=== PATIENT | male | born 1970 | race Caucasian/White ===

== ENCOUNTER → 2020-03-10 11:24 | Outpatient (CLI) | payer BC, SELFPAY ==
[2020-03-10 13:09] LABS: Coronavirus 19 IgG Antibody Negative (Negative); Coronavirus 19 IgM Antibody Negative (Negative)
== END ==
PROVIDERS: Visit Provider Internal Medicine Gastroenterology
DX: Z01.812 Encounter for preprocedural laboratory examination (principal)
CPT/HCPCS: 36415; 86328

== ENCOUNTER 2020-03-12 09:01 | Day surgery (SDC) | payer BC, SELFPAY ==
[2020-03-08 11:34] VITALS: BMI 41.1
[2020-03-12 09:40] VITALS: BP 119/69; PULSE 71; RESP 18; TEMP 36.8; O2SAT 98
[2020-03-12 10:07] VITALS: O2SAT 96
--- NOTE | 2020-03-12 10:10 | HMH.PROC ---
[facility] Procedure Note Procedure Note:: Upper Endoscopy Procedure Report: Esophagogastroduodenoscopy with cold biopsies Endoscopost: Reagan Craig II, MD Referring Physician: Yovani Hawk MD/José Luis Delaney MD Date of Procedure: March 12, 2020 Equipment: Olympus GIF 180 standard upper endoscope Sedation: MAC sedation Indications: Mr. Becerra is a 50-year-old gentleman who had prior laparoscopic cholecystectomy in June 2010 for a nonfunctioning gallbladder. He did formerly have some chronic constipation prior to the gallbladder surgery/cholecystectomy. He did start having more loose bowel movement subsequently. He had a colonoscopy with ne in December 2011 that was normal. He has factor V Leiden deficiency. Over the last 4 months he has had a change in bowel function with postprandial bowel urgency. He does not eat while he works. He has soft, loose or even watery stools. He also reports some perianal itching/pruritus ani. The patient does have right upper quadrant abdominal pain, bloating and belching. He does get some chest pain and pressure that radiates into the back. He reports some heartburn and reflux with occasional globus sensation. The patient does state that his recent lab work from hematology showed some abnormal liver chemistries and elevated creatinine. The patient has not yet completed the sucrose breath test to my knowledge. Procedure: Prior to the procedure, a history and physical exam was performed, and patient's medications and allergies were reviewed. The risks, benefits and alternatives of the sedation and procedure were discussed with the patient. All questions were answered and informed consent was obtained. The patient was brought to the procedure room. Patient identification and proposed procedure were verified by the physician and the nurse. The patient was placed in a left lateral decubitus position and the scope was passed under direct vision. Throughout the procedure, the patient's blood pressure, pulse, and oxygen saturations were monitored continuously. The upper GI endoscopy was accomplished without difficulty. The patient tolerated the procedure well. Findings: The scope was passed directly into the upper esophagus and advanced to the third portion of the duodenum. The post bulbar duodenum and duodenal bulb were normal with normal mucosa and conniventes. The scope was withdrawn through a normal duodenal bulb and pylorus into the stomach. There was bile reflux with some mild linear reactive gastropathy of the antrum. The remainder of the antrum, body and fundus of the stomach were grossly normal. Upon retroflexion there was no hiatal hernia. 2 biopsies were taken in the antrum and along the lesser curvature for histology to rule out gastritis and/or H pylori. The scope was then withdrawn into the esophagus. There was a serrated Z-line and evidence of nonerosive GERD. Biopsies were taken at the GE junction. There were tertiary contractions and evidence of mild esophageal dysmotility. The remainder of the esophageal mucosa was normal. Impression: 1. Nonerosive GERD with mild esophageal dysmotility 2. Bile reflux with mild linear reactive gastropathy Plan: I will follow-up the biopsies. I do feel that the patient has some functional dyspepsia and functional GERD with esophageal dyskinesia. We will discuss treatment options. I will proceed with diagnostic colonoscopy.
--- NOTE | 2020-03-12 10:27 | HMH.ANESCL ---
[facility] Anesthesia Checklist - Patient Identification Patient Identification: Arm Band, Verbal (Name & ) - Structural Data Admitted From: Home Planned Operative Procedure/s: EGD/colonoscopy Consent for Planned Operative Procedure(s) Verified: Yes Verified Documents: Surgical Consent, History and Physical - NPO Status Verified Time NPO: 00:00 - Chart Verification Results Verified: None - Additional verifications Anesthesia Reactions: No - Airway Assessment C-Spine Mobility Assessed: Yes TMJ Mobility Assessed: Yes Dentition: Good Dentition - Neurological Assessment Level of Consciousness: Awake, Alert, Appropriate, Follows Commands Hx Seizures: No Numbness or tingling in extremities: No - Anesthesia Plan Anesthesia Risk discussed: Yes Anesthesia Plan: Verified ASA Class: III Anesthesia Type: MAC [facility] History I have reviewed the patient's past medical history: Yes Medical History: Reports:: Deep Vein Thrombosis, Gastroesophageal Reflux Disease(GERD), Hyperlipidemia, Hypertension Denies:: Cancer, Diabetes Mellitus Type 1, Diabetes Mellitus Type 2, Internal Pacemaker, MRSA, Seizures *Have you ever received a pneumonia vaccine?: No *Have you received a flu vaccine this season?: No Comment:: Morbid obesity, fatty liver, Factor V deficiency, Anesthesia experience/problems:: None Laterality Cases: Left: Arthroscopy Shoulder, Right: ACL Repair Other Surgeries: Yes: Appendectomy, Cholecystectomy, Colonoscopy. No: Pacemaker Amputation: No Fractures: No - *Social History Last grade of school completed: GED Smoking Status: Former smoker #Yrs smoked (if former smoker): 15 Smoking End Date: 1999 Alcohol Intake: never Substance Use Type: denies use *Occupational Status:: unemployed Housing: house Household Members: spouse *Travel in the last 8 weeks: None Family Hx:: Cancer
--- NOTE | 2020-03-12 10:40 | P.PCN_ITS ---
[facility] Procedure Note Procedure Note:: Colonoscopy Procedure Report: Colonoscopy with cold biopsies Endoscopist: Reagan Craig II, MD Referring physician: Yovani Hawk MD/José Luis Delaney MD Date of Procedure: March 12, 2020 Equipment: Olympus 180 variable stiffness pediatric colonoscope Sedation: MAC sedation Indication: Mr. Becerra is a 50-year-old gentleman with right upper quadrant abdominal pain and some intermittent bowel irregularity with postprandial bowel urgency. He has had loose and sometimes watery stools. He may have improved some with stopping colestipol. He reports no weight loss or family history of colon cancer. He has had no bright red rectal bleeding. He does get some dyspepsia, functional GERD and esophageal spasm. He does have a history of factor V Leiden deficiency and is on anticoagulation with Eliquis. He did have a normal colonoscopy in December 2011. The patient had prior cholecystectomy in June 2010 (nonfunctioning gallbladder). Procedure: Prior to the procedure, a history and physical exam was performed, and patient's medications and allergies were reviewed. The risks, benefits and alternatives of the sedation and procedure were discussed with the patient. All questions were answered and informed consent was obtained. The patient was brought to the procedure room. Patient identification and proposed procedure were verified by the physician and the nurse. The patient was placed in a left lateral decubitus position and the scope was passed under direct vision. Throughout the pr ocedure, the patient's blood pressure, pulse, and oxygen saturations were monitored continuously. The colonoscopy was accomplished without difficulty. The patient tolerated the procedure well. Findings: On digital rectal examination there was normal rectal tone. There were no external hemorrhoids. The prostate was 2+, smooth, soft, symmetric without nodules. The colonoscope was introduced through the anal canal to the rectum and advanced to the cecum. The ileocecal valve and appendiceal orifice were identified. The scope was advanced a short distance into the ileum which appeared grossly normal. The scope was then withdrawn into the colon. Cold biopsies were taken from the right colon. The cecum, ascending, transverse, descending, sigmoid and rectum were grossly normal. There was some angulation at the hepatic flexure suggestive of hepatic flexure syndrome. There were no mucosal abnormalities identified throughout the colon. Upon retroflexion within the rectum there were grade 1-2 internal hemorrhoids.The preparation was excellent throughout with [place] Preparation Score of 9. The cecal time was 12 minutes. Impression: 1. 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 Normal colonoscopy with intubation of the terminal ileum 3. Grade 1-2 internal hemorrhoids Plan: The patient will not require screening/surveillance colonoscopy again for 10 years by ACS guidelines. I will follow-up the biopsies. I do feel that the patient has a functional intestinal disorder/hepatic flexure syndrome. I would encourage bulk fiber supplementation and treatment for visceral sensitivity. We will discuss dietary measures and treatment options.
[2020-03-12 10:41] VITALS: BP 87/57; PULSE 65; RESP 18; TEMP 36.1; O2SAT 92
[2020-03-12 10:51] VITALS: BP 100/62; PULSE 69; RESP 18; O2SAT 96
[2020-03-12 11:01] VITALS: BP 103/61; PULSE 67; RESP 18; O2SAT 96
[2020-03-12 11:31] VITALS: BP 120/68; PULSE 56; RESP 18; O2SAT 98
== END 2020-03-12 11:31 | disposition home or self-care (01) ==
LOC: OUTP 09:03
PROVIDERS: PCP Internal Medicine; Visit Provider Internal Medicine Gastroenterology
PROC: 0DJ08ZZ Inspection of Upper Intestinal Tract, Via Natural or Artificial Opening Endoscopic (ICD-10-PCS; CPT 43235; principal; 2020-03-12 10:30)
DX: K21.9 Gastro-esophageal reflux disease without esophagitis (principal); K22.4 Dyskinesia of esophagus; K31.9 Disease of stomach and duodenum, unspecified; Z87.19 Personal history of other diseases of the digestive system; K64.0 First degree hemorrhoids; K63.9 Disease of intestine, unspecified
CPT/HCPCS: 43239; 45380

== ENCOUNTER → 2020-04-13 10:01 | Outpatient (CLI) | payer BC, SELFPAY ==
[2020-04-13 11:26] LABS: Chloride 100 mmol/L (98-107); Potassium 3.9 mmoL/L (3.5-5.1); Sodium 137 mmol/L (136-145)
[2020-04-13 11:28] LABS: Alanine Aminotransferase 79 U/L (12-78); Aspartate Amino Transferase 50 U/L (17-59); Blood Urea Nitrogen 19 mg/dl (9-20); Estimated Glomerular Filt Rate 71 ml/min (>60); GFR (African American) 86 ML/MIN (>60)
[2020-04-13 11:29] LABS: Albumin Level 4.7 g/dl (3.5-5.0); Albumin/Globulin Ratio 1.8 (1.1-1.8); Alkaline Phosphatase 71 U/L (38-126); Anion Gap 12.9 mEq/L (5-15); Bilirubin,Direct 0.2 mg/dl (0.0-0.4); Bilirubin,Total 0.9 mg/dl (0.2-1.3); Calcium 9.9 mg/dl (8.4-10.2); Carbon Dioxide 28 mmol/L (22.0-30.0); Globulin 2.6 g/dL (1.3-3.2); Glucose 102 mg/dl (74-100); Iron 98 ug/dL (49-181); Total Protein,Serum 7.3 g/dl (6.3-8.2)
[2020-04-13 11:38] LABS: Total Iron Binding Capacity 317 ug/dL (261-462)
[2020-04-13 12:04] LABS: Ferritin 667 ng/ml (17.9-464)
[2020-04-14 19:40] LABS: Actin (Smooth Muscle) Antibody 3 Units (0-19); Hepatitis B Surface Antigen Negative (Negative); Hepatitis C Antibody <0.1 s/co ratio (0.0-0.9)
[2020-04-17 06:24] LABS: ALT (SGPT) P5P 78 IU/L (0-55); AST (SGOT) P5P 42 IU/L (0-40); Alpha 2-Macroglobulins, Qn 129 mg/dL (110-276); Apolipoprotein A-1 120 mg/dL (101-178); Bilirubin, Total 0.4 mg/dL (0.0-1.2); Cholesterol, Total 264 mg/dL (100-199); Fibrosis Score 0.18 (0.00-0.21); GGT 31 IU/L (0-65); Glucose 100 mg/dL (65-99); Haptoglobin 63 mg/dL (23-355); Steatosis Score 0.73 (0.00-0.30); Triglycerides 137 mg/dL (0-149)
[2020-04-19 16:04] LABS: Alpha-1-Antitrypsin 110 mg/dL (101-187)
[2020-04-27 14:37] LABS: Alpha-1-Antitrypsin, Serum Negative
== END ==
PROVIDERS: Visit Provider Internal Medicine Gastroenterology
DX: R10.11 Right upper quadrant pain (principal); K75.81 Nonalcoholic steatohepatitis (NASH); R19.8 Other specified symptoms and signs involving the digestive system and abdomen; K59.9 Functional intestinal disorder, unspecified; K59.00 Constipation, unspecified
CPT/HCPCS: 36415; 80053; 81332; 82103; 82104; 82248; 82728; 83540; 83550; 86255; 87340; 87380

== ENCOUNTER → 2020-10-25 09:30 | Outpatient (CLI) | payer OTHER, SELFPAY ==
[2020-10-25 10:55] LABS: Alanine Aminotransferase 43 U/L (12-78); Albumin Level 4.8 g/dl (3.5-5.0); Alkaline Phosphatase 79 U/L (38-126); Aspartate Amino Transferase 49 U/L (17-59); Bilirubin,Direct 0.2 mg/dl (0.0-0.4); Bilirubin,Indirect 0.7 mg/dL (0.0-0.9); Bilirubin,Total 0.9 mg/dl (0.2-1.3); Bilirubin,Unconjugated 0.7 mg/dL (0.0-1.1); Total Protein,Serum 7.4 g/dl (6.3-8.2)
== END ==
PROVIDERS: Visit Provider Internal Medicine Gastroenterology
DX: K75.81 Nonalcoholic steatohepatitis (NASH) (principal); R79.89 Other specified abnormal findings of blood chemistry
CPT/HCPCS: 36415; 80076; 81256

== ENCOUNTER → 2021-03-29 06:59 | Outpatient (CLI) | payer OTHER, SELFPAY ==
--- NOTE | 2021-03-29 07:18 | US_ITS ---
PROCEDURE: US ABDOMEN LIMITED CLINICAL INDICATION: RUQ PAIN He COMPARISON: No exams were available for comparison FINDINGS: PANCREAS: Poor visualization of the pancreas. LIVER: No focal liver lesions demonstrated. Homogeneous echogenicity. No intrahepatic biliary ductal dilatation evident. There is appropriate direction of blood flow within a non dilated portal vein RIGHT KIDNEY: Unremarkable. Normal size and echogenicity. No hydronephrosis GALLBLADDER: Prior cholecystectomy. Common bile duct is normal at 3 mm. IMPRESSION: Prior cholecystectomy. No acute finding. Poor demonstration of the pancreas. Dictated by: Ed Gale MD 03/29/2021 09:45 Ed Gale MD in [place] 03/29/2021 09:45
[2021-03-29 08:41] LABS: Basophils # 0.1 K/mm3 (0-0.2); Basophils % 1.1 % (0.1-2.0); Eosinophils # 0.2 K/mm3 (0.0-0.4); Eosinophils % 4.1 % (0.1-12.0); Hematocrit 46.1 % (42.0-52.0); Hemoglobin 15.1 g/dL (14.1-18.0); Lymphocytes # 1.8 K/mm3 (0.7-4.5); Lymphocytes % 33.1 % (10-50); Mean Corpuscular HGB Conc 32.8 g/dL (31.8-35.4); Mean Corpuscular Hemoglobin 30.3 pg (27.0-31.2); Mean Corpuscular Volume 92.4 fl (80-94); Monocytes # 0.4 K/mm3 (0.1-1.0); Monocytes % 6.7 % (1.7-9.3); Neutrophils # 2.9 K/mm3 (1.8-7.8); Platelet Count 239 K/mm3 (142-424); Red Blood Count 4.99 M/mm3 (4.60-6.20); Red Cell Distribution Width 13.9 % (11.5-17.5); White Blood Count 5.3 K/mm3 (4.8-10.8)
[2021-03-29 10:19] LABS: Chloride 104 mmol/L (98-107); Potassium 4.5 mmoL/L (3.5-5.1); Sodium 142 mmol/L (136-145)
[2021-03-29 10:22] LABS: Alanine Aminotransferase 37 U/L (12-78); Albumin Level 4.3 g/dl (3.5-5.0); Alkaline Phosphatase 88 U/L (38-126); Anion Gap 13.5 mEq/L (5-15); Aspartate Amino Transferase 38 U/L (17-59); Bilirubin,Total 0.6 mg/dl (0.2-1.3); Blood Urea Nitrogen 19 mg/dl (9-20); Carbon Dioxide 29 mmol/L (22.0-30.0); Estimated Glomerular Filt Rate 79 ml/min (>60); GFR (African American) 95 ML/MIN (>60); Globulin 2.2 g/dL (1.3-3.2); Lipase 246 U/L (23-300); Total Protein,Serum 6.5 g/dl (6.3-8.2)
[2021-03-29 10:23] LABS: Calcium 9.5 mg/dl (8.4-10.2); Glucose 77 mg/dl (74-100)
== END ==
PROVIDERS: PCP Internal Medicine; Visit Provider Nurse Practitioner Family
DX: R10.11 Right upper quadrant pain (principal)
CPT/HCPCS: 36415; 76705; 80053; 83690; 85025